=== PATIENT | female | born 1985 | race Caucasian/White ===

== ENCOUNTER 2019-01-15 14:09 | Inpatient (IN) | payer MEDICAID ==
[2019-01-15] MEDS ORDERED: Sodium Chloride 0.9% 1,000 ML IV ONE (14:29)
--- NOTE | 2019-01-15 14:39 | ED Physician Chart ---
ED Chief Complaint/HPI - Patient Information Date Seen:: 01/15/19 Time Seen:: 14:15 Chief Complaint:: Abdominal Pain History of Present Illness:: onset x 3 days of intermittent, crampy, diffuse abd. pain, N/V/D; no report of trauma, H/As, neck pain, cough, C/P, SOB, A/C, fever, chills, or urinary s/s Allergies:: Allergies Allergy/AdvReac Type Severity Reaction Status Date / Time DAIRY PRODUCTS Allergy Uncoded 01/15/19 14:16 Vitals:: Vital Signs - 8 hr 01/15/19 14:16 Temp 99.0 F HR 120 RR 16 BP 146/73 O2 Sat % 100 Historian:: Patient, EMS Review:: Nurse's Note Reviewed, Old Chart Reviewed, EMS run form Reviewed <Pranay Hernandez - Last Filed: 01/15/19 18:26> - Patient Information Allergies:: Allergies Allergy/AdvReac Type Severity Reaction Status Date / Time DAIRY PRODUCTS Allergy Uncoded 01/15/19 14:16 Vitals:: Vital Signs - 8 hr 01/15/19 01/15/19 14:16 19:57 Temp 99.0 F 98.9 F HR 120 102 RR 16 15 BP 146/73 122/72 O2 Sat % 100 99 <Yana Cm - Last Filed: 01/15/19 20:56> ED Review of Systems - Review of Systems General/Constitutional: No fever, No chills, No weight loss, No weakness, No diaphoresis, No edema, No loss of appetite Skin: No skin lesions, No rash, No bruising Head: No headache, No light-headedness Eyes: No loss of vision, No pain, No diplopia ENT: No earache, No nasal drainage, No sore throat, No tinnitus Neck: No neck pain, No swelling, No thyromegaly, No stiffness, No mass noted Cardio Vascular: No chest pain, No palpitations, No PND, No orthopnea, No edema Pulmonary: No SOB, No cough, No sputum, No wheezing GI: Nausea, Vomiting, Diarrhea, Pain, No melena, No hematochezia, No constipation, No hematemesis G/U: No dysuria, No frequency, No hematuria, No nacturia [employer]: No vaginal discharge, No abnormal vaginal bleed, No contraction Musculoskeletal: No bone or joint pain, No back pain, No muscle pain Endocrine: No polyuria, No polydipsia Psychiatric: Prior psych history, No depression, Anxiety, No suicidal ideation, No homicidal ideation, No auditory hallucination, No visual hallucination Hematopoietic: No bruising, No lymphadenopathy Allergic/Immuno: No urticaria, No angioedema Neurological: No syncope, No focal symptoms, No weakness, No paresthesia, No headache, No seizure, No dizziness, No confusion, No vertigo <Pranay Hernandez - Last Filed: 01/15/19 18:26> ED Past Medical History - Past Medical History Obtainable: Yes Past Medical History: HTN, Dyslipidemia, Arthritis Family History: HTN Social History: Non Smoker, No Alcohol, No Drug Use, Single, Care Facility Surgical History: None Psychiatricy History: Dementia Medication: Reviewed <Pranay Hernandez - Last Filed: 01/15/19 18:26> Family Medical History - Family Member Mother History Unknown: Yes Ethnicity: Unknown Living Status: Still Living <Pranay Hernandez - Last Filed: 01/15/19 18:26> ED Physical Exam - Physical Examination General/Constitutional: Awake, Well-developed, well-nourished, Alert, No distress, GCS 15, Non-toxic appearing, Ambulatory Head: Atraumatic Eyes: Lids, conjuctiva normal, PERRL, EOMI Skin: Nl inspection, No rash, No skin lesions, No ecchymosis, Well hydrated, No lymphadenopathy ENMT: External ears, nose nl, TM canals nl, Nasal exam nl, Lips, teeth, gums nl , Oropharynx nl, Tonsils nl Neck: Nontender, Full ROM w/o pain, No JVD, No nuchal rigidity, No bruit, No mass, No stridor Respiratory: Nl effort/Exclusion, Clear to Auscultation, No Wheeze/Rhonchi/Rales Cardio Vascular: RRR, No murmur, gallop, rubs, NL S1 S2, Carotid/Femoral/Distal pulses equal bilaterally GI: No tenderness/rebounding/guarding, No organomegaly, No hernia, Normal BS's, Nondistended, No mass/bruits, No McBurney tenderness, Rectum exam nl : No CVA tenderness Extremities: No tenderness or effusion, Full ROM, normal strength in all extremities, No edema, Normal digits & nails Neuro/Psych: Alert/oriented, DTR's symmetric, Normal sensory exam, Normal motor strength, Judgement/insight normal, Mood normal, Normal gait, No focal deficits Misc: Normal back, No paraspinal tenderness <Pranay Hernandez - Last Filed: 01/15/19 18:26> ED Labs/Radiology/EKG Results - Lab Results Results: Laboratory Tests 01/15/19 01/15/19 01/15/19 14:30 14:30 14:30 WBC 13.1 H RBC 4.76 Hgb 14.9 Hct 43.5 MCV 91.5 MCH 31.3 H MCHC Differential 34.3 RDW 13.6 Plt Count 282 MPV 8.4 Neutrophils % 95.3 H Lymphocytes % 1.7 L Monocytes % 2.5 Eosinophils % 0.1 Basophils % 0.4 Sodium 132 L Potassium 3.4 L Chloride 100 Carbon Dioxide 23.2 Anion Gap 12.2 BUN 16 Creatinine 0.6 Est GFR ( Amer) > 60.0 Est GFR (Non-Af Amer) > 60.0 BUN/Creatinine Ratio 26.7 Glucose 114 H Calcium 9.1 Total Bilirubin 0.2 L AST 19 ALT 17 Alkaline Phosphatase 73 Troponin I < 0.01 L Total Protein 7.2 Albumin 4.4 Globulin 2.8 Albumin/Globulin Ratio 1.6 Amylase 50 Lipase 21 Serum , Qual 01/15/19 14:30 WBC RBC Hgb Hct MCV MCH MCHC Differential RDW Plt Count MPV Neutrophils % Lymphocytes % Monocytes % Eosinophils % Basophils % Sodium Potassium Chloride Carbon Dioxide Anion Gap BUN Creatinine Est GFR ( Amer) Est GFR (Non-Af Amer) BUN/Creatinine Ratio Glucose Calcium Total Bilirubin AST ALT Alkaline Phosphatase Troponin I Total Protein Albumin Globulin Albumin/Globulin Ratio Amylase Lipase Serum , Qual NEGATIVE <Yana Cm - Last Filed: 01/15/19 20:56> ED Septic Shock - . Is Septic Shock (SBP<90, OR Lactate>4 mmol\L) present?: No - <6hrs of presentation: Vital Signs: Vital Signs - 8 hr 01/15/19 14:16 Temp 99.0 F HR 120 RR 16 BP 146/73 O2 Sat % 100 <Pranay Hernandez - Last Filed: 01/15/19 18:26> - <6hrs of presentation: Vital Signs: Vital Signs - 8 hr 01/15/19 01/15/19 14:16 19:57 Temp 99.0 F 98.9 F HR 120 102 RR 16 15 BP 146/73 122/72 O2 Sat % 100 99 <Yana Cm - Last Filed: 01/15/19 20:56> ED Reassessment (Disposition) - Reassessment Reassessment Condition:: Improved - Diagnosis Diagnosis:: Abdominal Pain; N/V/D; AGE; Leukocytosis; Hypokalemia; Hyponatremia; Dehydration ; Fever; Tachycardia <Pranay Hernandez - Last Filed: 01/15/19 18:26> - Reassessment Reassessment:: CT abdomen/pelvis showed severely distended stomach and RLQ mild ileus. There was elevated WBC with left shift, empirical rocephin and flagyl were given. Pt will be admitted under Dr. Ling's service. - Patient Disposition Discharge/Transfer:: Acute Care w/in this hosp Admitting Medical Physician:: Feroz Ling <Yana Cm - Last Filed: 01/15/19 20:56>
[2019-01-15 14:48] LABS: BASOPHILE ABSOLUTE 0.1 Th/cumm (0-0.2); HEMATOCRIT 43.5 % (41.0-60); HEMOGLOBIN 14.9 gm/dL (12-16); LYMPHOCYTE ABSOLUTE 0.2 Th/cmm (1.5-3.0); MEAN CELL VOLUME 91.5 fl (81-100); MEAN CORPUSCULAR HEMOGLOBIN 31.3 pg (27.0-31.0); MEAN CORPUSCULAR HGB CONC 34.3 pg (28.0-36.0); MEAN PLATELET VOLUME 8.4 fl; MONOCYTE ABSOLUTE 0.3 Th/cmm (0.3-1.0); NEUTROPHILE ABSOLUTE 12.5 Th/cmm (1.8-8.0); PLATELET COUNT 282 Th/cmm (150-400); RED BLOOD COUNT 4.76 Mil/cmm (3.80-5.10); RED CELL DISTRIBUTION WIDTH 13.6 % (11.5-20.0); WHITE BLOOD COUNT 13.1 Th/cmm (4.8-10.8)
[2019-01-15 14:54] LABS: % EOSINOPHILS 0.1 % (0.0-5.0); % LYMPHOCYTES 1.7 % (20.0-50.0); % MONOCYTES 2.5 % (2.0-10.0); % NEUTROPHILS 95.3 % (40.0-80.0)
[2019-01-15 14:55] LABS: % BASOPHILS 0.4 % (0.0-2.0)
[2019-01-15 15:10] LABS: ALB/GLOB RATIO 1.6 (1.0-1.8); ALBUMIN 4.4 gm/dL (3.7-5.3); ALKALINE PHOSPHATASE 73 U/L (34-104); AMYLASE SERUM 50 U/L (29-103); ANION GAP 12.2 (7.0-16.0); BILIRUBIN,TOTAL 0.2 mg/dL (0.3-1.0); BUN - UREA NITROGEN 16 mg/dL (7-25); CALCIUM SERUM 9.1 mg/dL (8.6-10.3); CARBON DIOXIDE 23.2 mEq/L (21.0-31.0); CHLORIDE 100 mEq/L (98-107); CREATININE - SERUM 0.6 mg/dL (0.6-1.2); GFR AFRICAN-AMERICAN > 60.0 ml/min (>90); GFR NON AFRICAN-AMERICAN > 60.0 ml/min; GLUCOSE 114 mg/dL (70-105); LIPASE 21 U/L (11-82); POTASSIUM SERUM 3.4 mEq/L (3.5-5.1); SGOT 19 U/L (13-39); SGPT/ALT 17 U/L (7-52); SODIUM SERUM 132 mEq/L (136-145); TOTAL PROTEIN,SERUM 7.2 gm/dL (6.0-8.3)
[2019-01-15] MEDS ORDERED: Potassium Chloride 20 mEq ER Tab PO ONE ×2 (15:47→16:53)
[2019-01-15] MEDS ORDERED: Diatrizoate Meglumine/Diatri 30 mL Sol ONE (15:59)
[2019-01-15] MEDS ORDERED: cefTRIAXone 1 GM in Sodium Chloride 0.9% 50 ML IV ONE (20:38)
[2019-01-15] MEDS ORDERED: metroNIDAZOLE 500mg/NS 100mL 500 MG/100 ML BAG IV ONE ×2 (20:39→21:08)
[2019-01-15] MEDS ORDERED: Sodium Chloride 0.9% 500 ML IV ONE (20:42)
[2019-01-15] MEDS: Sodium Chloride 0.9% 1,000 ML IV SCH (22:45)
[2019-01-15] MEDS ORDERED: HYDROmorphone 1 mg/mL 1mL Syr IVP PRN (22:58)
[2019-01-15] MEDS ORDERED: Sodium Chloride 0.9% 1,000 ML IV SCH (22:58)
[2019-01-16 03:53] VITALS: BP 116/64
[2019-01-16] MEDS ORDERED: metroNIDAZOLE 500mg/NS 100mL 500 MG/100 ML BAG IV SCH (05:00)
[2019-01-16 05:32] LABS: HEMATOCRIT 42.1 % (41.0-60); MEAN CORPUSCULAR HEMOGLOBIN 30.7 pg (27.0-31.0); MEAN CORPUSCULAR HGB CONC 33.4 pg (28.0-36.0); MEAN PLATELET VOLUME 8.8 fl; PLATELET COUNT 276 Th/cmm (150-400); RED BLOOD COUNT 4.57 Mil/cmm (3.80-5.10); RED CELL DISTRIBUTION WIDTH 13.7 % (11.5-20.0); WHITE BLOOD COUNT 10.5 Th/cmm (4.8-10.8)
[2019-01-16 05:47] LABS: ALB/GLOB RATIO 1.5 (1.0-1.8); ALBUMIN 3.7 gm/dL (3.7-5.3); ALKALINE PHOSPHATASE 60 U/L (34-104); ANION GAP 13.2 (7.0-16.0); BILIRUBIN,TOTAL 0.2 mg/dL (0.3-1.0); BUN - UREA NITROGEN 15 mg/dL (7-25); CALCIUM SERUM 8.7 mg/dL (8.6-10.3); CARBON DIOXIDE 16.8 mEq/L (21.0-31.0); CHLORIDE 109 mEq/L (98-107); CREATININE - SERUM 0.6 mg/dL (0.6-1.2); GFR AFRICAN-AMERICAN > 60.0 ml/min (>90); GFR NON AFRICAN-AMERICAN > 60.0 ml/min; GLUCOSE 110 mg/dL (70-105); SGOT 20 U/L (13-39); SGPT/ALT 18 U/L (7-52); SODIUM SERUM 136 mEq/L (136-145); TOTAL PROTEIN,SERUM 6.2 gm/dL (6.0-8.3)
[2019-01-16] MEDS: metroNIDAZOLE 500mg/NS 100mL 500 MG/100 ML BAG IV SCH ×3 (05:57→21:30)
[2019-01-16 06:55] LABS: BAND NEUTROPHILE 5 % (0-10); BASOPHIL 0 % (0-3); EOSINOPHIL 0 % (0-5); LYMPHOCYTE 3 % (20-50); MONOCYTE 6 % (2-10); NEUTROPHILS 86 % (40-80)
[2019-01-16] MEDS ORDERED: KCL 20mEq/100mL Premix 20 MEQ/100 ML PIGGYBACK IV ONE (07:30)
[2019-01-16] MEDS: cefTRIAXone 1 GM in Sodium Chloride 0.9% 50 ML IV SCH (08:20)
--- NOTE | 2019-01-16 09:44 | Diagnostic Imaging Report ---
Exam: CT examination abdomen pelvis HISTORY: Vomiting pain Rule out appendicitis. Total DLP equals 538 CTDI equals 10.9 Findings: Multiple contiguous thin section of the abdomen pelvis obtained from lower thorax to the pubic symphysis without the administration of oral or intravenous contrast material, no prior studies available comparison. The study demonstrates normal aeration of lung parenchyma the bases. The liver parenchyma is intact the spleen is normal. The stomach is seen medially distended. Content and air fluid level. The visualized pancreas is intact. The adrenal glands are normal. The kidneys demonstrate no evidence of obstructive uropathy or nephrolithiasis. There is evidence for mild distention of the lower small bowel loops suggestive of mild ileus. The visualized appendix is intact. There is no evidence of diverticular disease of diverticulitis. Bony structures demonstrate no evidence for lytic or blastic lesions. IMPRESSION: Severely distended stomach Mild ileus lower abdomen and pelvis distention small bowel loops with air-fluid levels Visualized appendix is intact.
--- NOTE | 2019-01-16 09:59 | History and Physical ---
History of Present Illness - HPI Chief Complaint: Nausea, vomit and diarrhea HPI: Patient was send from SNF for evaluation due to Nausea, vomit and diarrhea. During ER evaluation was foung Leukocytosis and dehydration, and abdominal CT showed possible ileus. Vital Signs: Last Vital Signs Temp 98.2 F 01/16/19 08:00 Pulse 107 01/16/19 08:00 Resp 18 01/16/19 08:00 BP 111/60 01/16/19 08:00 Pulse Ox 97 01/16/19 08:00 Past Medical History Cardiovascular: Report: No Pertinent Hx Pulmonary: Report: No Pertinent Hx [employer] APPRENTICE: Report: Dementia, Other (MR, Cerebral palsy.) GI: Report: No Pertinent Hx Psych: Report: Other (MR) Musculoskeletal: Report: Stiffness, Other (Non ambulatory) Rheumatologic: Report: No pertinent Hx Infectious Disease: Report: No Pertinent Hx Renal/: Report: No Pertinent Hx Endocrine: Report: No Pertinent Hx Dermatology: Report: No Pertinent Hx Family Medical History - Family Member Mother History Unknown: Yes Ethnicity: Unknown Living Status: Still Living Social History Smoke: No Alcohol: None Drugs: None Lives: Care Home Domestic Violence: Negative - Medications Home Medications: Home Medication Medication Instructions Recorded Type Bisacodyl [Dulcolax 10 Mg Supp] 10 mg RC Q96HR PRN 10/09/14 History Calcium Citrate/Vitamin D3 1 tab PO BID 10/09/14 History [Calcium Citrate with Vitamin D 315 mg-200 Iu] Loratadine 10 mg PO QAM 10/09/14 History Magnesium Hydroxide [Mom] 30 ml PO Q72HR PRN 10/09/14 History Multimineral/Multivitamin 1 tab PO DAILY 10/09/14 History [Multivitamin & Multimineral] Na Phos, Dibasic/Na Phos, Mo 0 ml RC Q96H PRN 10/09/14 History [Fleet Enema] Vits A & D/White Pet/Lanolin [A & 1 oin TP BID 10/09/14 History D Ointment] Acetaminophen [Tylenol] 650 mg PO Q4HR PRN 10/05/15 History Oxcarbazepine [Trileptal*] 600 mg PO BID 10/05/15 History Dermasmooth Oil 1 appl TP HS 01/15/19 History Hydrocortisone/Oatmeal/Aloe/E 28 gm TP DAILY 01/15/19 History [Aveeno 1% Cream] Petrolatum,White [Aquaphor Baby 1 appl TP DAILY 01/15/19 History Healing Ointment] Sunscreen Factor 30 1 appl TP PRN PRN 01/15/19 History - Allergies Allergies/Adverse Reactions: Allergies Allergy/AdvReac Type Severity Reaction Status Date / Time DAIRY PRODUCTS Allergy Uncoded 01/15/19 14:16 Review of Systems - Review of Systems Constitutional: Report: Weakness Eyes: Report: No Significant ENT: Report: No Significant Respiratory: Report: No Significant Cardiovascular: Report: No Significant Gastrointestinal: Report: Nausea, Vomiting Musculoskeletal: Report: No Significant Skin: Report: No Significant Neurological: Report: Weakness, Other (Non ambulatory) Physical Exam - Physical Exam HEENT: Report: Ears Nose Throat within normal limits Neck: Report: Within normal limits Cardiovascular Systems: Report: Regular, Rate and Rhythm Respiratory: Report: Breath Sounds are within normal limits Abdomen: Report: Non-tender to palpation, Other (BS present) Back: Report: Inspection of back is within normal limits. Extremities: Report: No pedal edema was noted on inspection Skin: Report: Color of skin is within normal limits Neuro/Psych: Report: Other (Non verbal) - Lab Results All Lab Results last 24 hours: Laboratory Results - last 24 hr 01/15/19 01/15/19 01/15/19 14:30 14:30 14:30 WBC 13.1 H RBC 4.76 Hgb 14.9 Hct 43.5 MCV 91.5 MCH 31.3 H MCHC Differential 34.3 RDW 13.6 Plt Count 282 MPV 8.4 Add Manual Diff Neutrophils % 95.3 H Band Neutrophils % Lymphocytes % 1.7 L Monocytes % 2.5 Eosinophils % 0.1 Basophils % 0.4 Neutrophils (Manual) Lymphocytes Monocytes Eosinophils Basophils Sodium 132 L Potassium 3.4 L Chloride 100 Carbon Dioxide 23.2 Anion Gap 12.2 BUN 16 Creatinine 0.6 Est GFR ( Amer) > 60.0 Est GFR (Non-Af Amer) > 60.0 BUN/Creatinine Ratio 26.7 Glucose 114 H Calcium 9.1 Total Bilirubin 0.2 L AST 19 ALT 17 Alkaline Phosphatase 73 Troponin I < 0.01 L Total Protein 7.2 Albumin 4.4 Globulin 2.8 Albumin/Globulin Ratio 1.6 Amylase 50 Lipase 21 Serum , Qual 01/15/19 01/16/19 01/16/19 14:30 04:50 04:50 WBC 10.5 RBC 4.57 Hgb 14.0 Hct 42.1 MCV 92.0 MCH 30.7 MCHC Differential 33.4 RDW 13.7 Plt Count 276 MPV 8.8 Add Manual Diff YES Neutrophils % Band Neutrophils % 5 Lymphocytes % Monocytes % Eosinophils % Basophils % Neutrophils (Manual) 86 H Lymphocytes 3 L Monocytes 6 Eosinophils 0 Basophils 0 Sodium 136 Potassium 3.0 L Chloride 109 H Carbon Dioxide 16.8 L Anion Gap 13.2 BUN 15 Creatinine 0.6 Est GFR ( Amer) > 60.0 Est GFR (Non-Af Amer) > 60.0 BUN/Creatinine Ratio 25.0 Glucose 110 H Calcium 8.7 Total Bilirubin 0.2 L AST 20 ALT 18 Alkaline Phosphatase 60 Troponin I Total Protein 6.2 Albumin 3.7 Globulin 2.5 Albumin/Globulin Ratio 1.5 Amylase Lipase Serum , Qual NEGATIVE - Assessment Assessment: Current Active Problems Problem Status Onset N/V WITH LOOSE STOOLS Acute Patient is awake, alert, agitated at moments. In no acute distress. Dx: diarrhea and vomit, possible ileus, Leukocytosis, Dehydrated, Hyponatremia, MR, CP. - Plan Plan: Patient is in IV NS, IV AB, NPO, continue with SNF meds. Consult with surgery requested.
[2019-01-16] MEDS: Sodium Chloride 0.9% 1,000 ML IV SCH (14:28)
[2019-01-16] MEDS: Calcium Carb/Vit D 500 mg/200 U Tab PO SCH (16:23)
--- NOTE | 2019-01-17 05:49 | Consultation ---
DATE OF CONSULTATION: 01/16/2019 SURGICAL CONSULTATION TIME: 08:42 p.m. HISTORY OF PRESENT ILLNESS: The patient is a 33-year-old mentally retarded female, who resides at a residential facility, limited history, poor historian. Three days of reported intermittent, crampy, diffuse abdominal pain with some nausea, vomiting and some diarrhea. No report of trauma. The patient was noted with a mild leukocytosis and CT scan showed a severely distended stomach and mild ileus and the patient was subsequently admitted to the hospital. Surgical consultation was requested. Admitted by Dr. Feroz Ling. The patient denies any significant abdominal pain, although she is not very interactive. The rest of her history is not obtainable. She has mental retardation and cerebral palsy. HOME MEDICATIONS: Includes Dulcolax suppository, calcium citrate, loratadine, magnesium hydroxide, multivitamins, Fleet's enema, hydrocortisone, petroleum white, Aquaphor baby healing ointment. ALLERGIES: THE PATIENT HAS DAIRY PRODUCTS ALLERGY. PHYSICAL EXAMINATION: VITAL SIGNS: She is 51 kilograms. BMI of 25.6. She is afebrile, T-max of 99.6, some tachycardia 110-114, blood pressure otherwise stable. GENERAL: She is mentally retarded. She is in restraints, but very uncooperative. HEENT AND NECK: Otherwise within normal limits. CHEST: Clear to auscultation bilaterally. CARDIAC: Regular rhythm and rate. ABDOMEN: Soft, no obvious tenderness. There is no obvious guarding, rebound, or generalized peritoneal signs. Nondistended. NEUROVASCULAR AND EXTREMITIES: Otherwise normal. RECTAL: Revealed no gross blood and no obvious constipation or hemorrhoids. LABORATORY DATA: White blood cell count 13.1 on admission, down to 10.5 today; H and H is 14 and 42, platelet count 276, and 86 neutrophils. Potassium 3.0, chloride 109, bicarbonate 16.8, glucose 110. LFTs are otherwise unremarkable. The CT abdomen and pelvis performed yesterday reveals severely distended stomach, mild ileus in lower abdomen and pelvis, distention of small bowel loops with air fluid levels, visualized appendix is intact with no obvious right lower quadrant inflammatory changes or acute appendicitis. MEDICATIONS: The patient is on ceftriaxone and Flagyl. IMPRESSION/PLAN: A 33-year-old female, mentally retarded, cerebral palsy, resides in a residential facility, reportedly developed nausea and vomiting, and presented to the ER with a mild leukocytosis, low grade fever. CT abdomen and pelvis showed a severely distended stomach and some mild ileus, cannot rule out small-bowel obstruction or partial small-bowel obstruction. The patient had 5 bowel movements today, soft liquidy. I would repeat the KUB tomorrow if there is any concern for obstructive process. Would place an NG tube and obtain a small bowel series. She may not cooperate with this study well. She has a fairly benign abdominal examination and does not appear in distress at this time. [facility]# [id number]
[2019-01-17] MEDS: metroNIDAZOLE 500mg/NS 100mL 500 MG/100 ML BAG IV SCH ×3 (07:04→22:41)
[2019-01-17 07:32] LABS: ALB/GLOB RATIO 1.4 (1.0-1.8); ALBUMIN 3.1 gm/dL (3.7-5.3); ALKALINE PHOSPHATASE 48 U/L (34-104); ANION GAP 12.2 (7.0-16.0); BILIRUBIN,TOTAL 0.2 mg/dL (0.3-1.0); BUN - UREA NITROGEN 9 mg/dL (7-25); CALCIUM SERUM 8.2 mg/dL (8.6-10.3); CARBON DIOXIDE 13.8 mEq/L (21.0-31.0); CHLORIDE 111 mEq/L (98-107); CREATININE - SERUM 0.6 mg/dL (0.6-1.2); GFR AFRICAN-AMERICAN > 60.0 ml/min (>90); GFR NON AFRICAN-AMERICAN > 60.0 ml/min; GLUCOSE 79 mg/dL (70-105); SGOT 31 U/L (13-39); SGPT/ALT 16 U/L (7-52); SODIUM SERUM 133 mEq/L (136-145); TOTAL PROTEIN,SERUM 5.4 gm/dL (6.0-8.3)
[2019-01-17 07:42] LABS: BASOPHILE ABSOLUTE 0.1 Th/cumm (0-0.2); EOSINOPHILE ABSOLUTE 0.1 Th/cmm (0.1-0.4); HEMATOCRIT 37.5 % (41.0-60); HEMOGLOBIN 12.5 gm/dL (12-16); LYMPHOCYTE ABSOLUTE 0.9 Th/cmm (1.5-3.0); MEAN CELL VOLUME 93.2 fl (81-100); MEAN CORPUSCULAR HEMOGLOBIN 30.9 pg (27.0-31.0); MEAN CORPUSCULAR HGB CONC 33.2 pg (28.0-36.0); MEAN PLATELET VOLUME 8.8 fl; NEUTROPHILE ABSOLUTE 4.1 Th/cmm (1.8-8.0); PLATELET COUNT 204 Th/cmm (150-400); RED BLOOD COUNT 4.03 Mil/cmm (3.80-5.10); RED CELL DISTRIBUTION WIDTH 13.8 % (11.5-20.0); WHITE BLOOD COUNT 6.2 Th/cmm (4.8-10.8)
--- NOTE | 2019-01-17 08:42 | Diagnostic Imaging Report ---
Exam: KUB of the abdomen. HISTORY: Ileus. Findings: Multiple views of the abdomen reviewed the study demonstrates a distention of small bowel large bowel loops suggestive of mild ileus. Bony structures intact no abnormal masses calcifications noted. IMPRESSION: Mild ileus.
--- NOTE | 2019-01-17 08:48 | General Progress Note ---
Subjective - Review of Systems Service Date: 01/17/19 Subjective: Non Verbal Objective - Results Result Diagrams: 01/17/19 06:45 01/17/19 06:45 Recent Labs: Laboratory Last Values WBC 6.2 Th/cmm (4.8-10.8) 01/17/19 06:45 RBC 4.03 Mil/cmm (3.80-5.10) 01/17/19 06:45 Hgb 12.5 gm/dL (12-16) 01/17/19 06:45 Hct 37.5 % (41.0-60) L 01/17/19 06:45 MCV 93.2 fl (81-100) 01/17/19 06:45 MCH 30.9 pg (27.0-31.0) 01/17/19 06:45 MCHC Differential 33.2 pg (28.0-36.0) 01/17/19 06:45 RDW 13.8 % (11.5-20.0) 01/17/19 06:45 Plt Count 204 Th/cmm (150-400) 01/17/19 06:45 MPV 8.8 fl 01/17/19 06:45 Add Manual Diff YES 01/17/19 06:45 Neutrophils % 95.3 % (40.0-80.0) H 01/15/19 14:30 Band Neutrophils % 5 % (0-10) 01/16/19 04:50 Lymphocytes % 1.7 % (20.0-50.0) L 01/15/19 14:30 Monocytes % 2.5 % (2.0-10.0) 01/15/19 14:30 Eosinophils % 0.1 % (0.0-5.0) 01/15/19 14:30 Basophils % 0.4 % (0.0-2.0) 01/15/19 14:30 Neutrophils (Manual) 86 % (40-80) H 01/16/19 04:50 Lymphocytes 3 % (20-50) L 01/16/19 04:50 Monocytes 6 % (2-10) 01/16/19 04:50 Eosinophils 0 % (0-5) 01/16/19 04:50 Basophils 0 % (0-3) 01/16/19 04:50 Sodium 133 mEq/L (136-145) L 01/17/19 06:45 Potassium 4.0 mEq/L (3.5-5.1) 01/17/19 06:45 Chloride 111 mEq/L (98-107) H 01/17/19 06:45 Carbon Dioxide 13.8 mEq/L (21.0-31.0) L 01/17/19 06:45 Anion Gap 12.2 (7.0-16.0) 01/17/19 06:45 BUN 9 mg/dL (7-25) 01/17/19 06:45 Creatinine 0.6 mg/dL (0.6-1.2) 01/17/19 06:45 Est GFR ( Amer) > 60.0 ml/min (>90) 01/17/19 06:45 Est GFR (Non-Af Amer) > 60.0 ml/min 01/17/19 06:45 BUN/Creatinine Ratio 15.0 01/17/19 06:45 Glucose 79 mg/dL (70-105) 01/17/19 06:45 Calcium 8.2 mg/dL (8.6-10.3) L 01/17/19 06:45 Total Bilirubin 0.2 mg/dL (0.3-1.0) L 01/17/19 06:45 AST 31 U/L (13-39) 01/17/19 06:45 ALT 16 U/L (7-52) 01/17/19 06:45 Alkaline Phosphatase 48 U/L (34-104) 01/17/19 06:45 Troponin I < 0.01 ng/mL (0.01-0.05) L 01/15/19 14:30 Total Protein 5.4 gm/dL (6.0-8.3) L 01/17/19 06:45 Albumin 3.1 gm/dL (3.7-5.3) L 01/17/19 06:45 Globulin 2.3 gm/dL 01/17/19 06:45 Albumin/Globulin Ratio 1.4 (1.0-1.8) 01/17/19 06:45 Amylase 50 U/L (29-103) 01/15/19 14:30 Lipase 21 U/L (11-82) 01/15/19 14:30 Serum , Qual NEGATIVE (NEGATIVE) 01/15/19 14:30 - Physical Exam Vitals and I&O: Vital Signs Temp 97.6 F 01/17/19 06:44 Pulse 93 01/17/19 06:44 Resp 20 01/17/19 06:44 BP 116/69 01/17/19 06:44 Pulse Ox 93 01/17/19 06:44 Intake & Output 01/16/19 01/17/19 01/17/19 18:59 06:59 18:59 Intake Total 2049 140 Output Total 3 Balance 2046 140 Weight (lbs) 51.71 kg 51.71 kg Intake: Intake, IV Amount 1150 100 Sodium Chloride 0.9% 1, 1000 000 ml @ 100 mls/hr IV . Q10H [facility] Rx#:[id number] cefTRIAXone 1 gm In 50 Sodium Chloride 0.9% 50 ml @ 100 mls/hr IV Q24HR [facility] Rx#:[id number] metroNIDAZOLE 500mg/NS 100 100 100mL 500 mg In 100 ml @ 100 mls/hr IV Q8HR [facility] Rx #:[id number] Oral 900 40 Output: Urine 3 Other: # Voids 5 # Bowel Movements 5 2 Weight Source Bedscale Bedscale Active Medications: Current Medications Acetaminophen (Tylenol) 650 mg PO Q4HR PRN PRN Reason: PAIN OR FEVER >100 Stop: 03/17/19 09:50 Calcium/Vitamin D (Oscal W/Vitamin D) 1 tab PO BID [facility] Stop: 03/17/19 16:59 Last Admin: 01/16/19 16:23 Dose: 1 tab Hydromorphone HCl (Dilaudid) 0.5 mg IVP Q6HR PRN PRN Reason: mod to severe pain Stop: 03/16/19 22:57 Sodium Chloride (Nacl 0.9%) 1,000 mls @ 100 mls/hr IV .Q10H [facility] Stop: 03/16/19 21:59 Last Admin: 01/16/19 14:28 Dose: 100 mls/hr Ceftriaxone Sodium 1 gm/ (Sodium Chloride) 50 mls @ 100 mls/hr IV Q24HR [facility] Stop: 03/17/19 08:59 Last Infusion: 01/16/19 08:50 Dose: Infused Metronidazole (Flagyl) 500 mg in 100 mls @ 100 mls/hr IV Q8HR [facility] Stop: 03/17/19 04:59 Last Admin: 01/17/19 07:04 Dose: 100 mls/hr Lorazepam (Ativan) 1 mg IVP Q8HR PRN; Protocol PRN Reason: Agitation Stop: 03/17/19 00:56 Last Admin: 01/17/19 08:07 Dose: 1 mg Multivitamins/Vitamin C (Theragran) 1 tab PO DAILY [facility] Stop: 03/18/19 08:59 Ondansetron HCl (Zofran) 4 mg IV Q8H PRN PRN Reason: Nausea / Vomiting Stop: 03/16/19 22:07 Oxcarbazepine (Trileptal) 600 mg PO BID [facility] Stop: 03/17/19 16:59 Last Admin: 01/16/19 16:23 Dose: 600 mg General: Alert, Other (Confused, non verbal) HEENT: Atraumatic Neck: Supple Cardiovascular: Regular rate Lungs: Clear to auscultation Abdomen: Bowel sounds, Soft, Other (Non tender) Extremities: Other (No edema) Neurological: Other (Non ambulatory) Skin: Other (Warm and dry) Psych/Mental Status: Other (Confused, not oriented, non verbal) Assessment/Plan - Problem List Patient Problems: All Active Problems N/V WITH LOOSE STOOLS (Acute) - Assessment Assessment: Current Active Problems Problem Status Onset N/V WITH LOOSE STOOLS Acute Patient is awake, alert, agitated at moments. In no acute distress. WBC normal, yesterday she evacuate 5 times soft. Dx: diarrhea and vomit, possible ileus, Leukocytosis, Dehydrated, Hyponatremia, MR, CP. - Plan Plan: Patient is in IV NS, IV AB, NPO, continue with SNF meds. Already seen by surgery. Will continue to monitor. Nutritional Asmnt/Malnutr-PDOC - Dietary Evaluation Malnutrition Findings (Please click <Entered> for more info): Nutritional Asmnt/Malnutrition Start: 01/16/19 16: 31 Text: Status: Complete Freq: Protocol: Document 01/16/19 16:31 [facility] (Rec: 01/16/19 16:38 [facility] [id number]) Nutritional Asmnt/Malnutrition Patient General Information Nutritional Screening High Risk Consult Diagnosis possible ileus Pertinent Medical Hx/Surgical Hx HTN, dyslipidemia, arthritis, dementia Subjective Information Consult received for judith 11 . Pt admitted for N/V/D, abd pain. Pt seen lying in bed, confused, not participated in communication, has 1:1 sitter. pt was on NPO. Clear liquid starts from dinner today. Current Diet Order/ Nutrition Support clear liquid Pertinent Medications oscal w/vit D, theragran, nacl 0.9% Pertinent Labs 01/16 K 3.0, Cl 109, Glucose 110 01/15 Na 132, K 3.4, Glucose 114 Nutritional Hx/Data Height 1.42 m Height (Calculated Centimeters) 142.2 Current Weight (lbs) 51.71 kg Weight (Calculated Kilograms) 51.7 Weight (Calculated Grams) 11718.5 [place] Body Weight 92 Body Mass Index (BMI) 25.5 Recent Weight Change Yes Weight Status Overweight GI Symptoms GI Symptoms None Last BM not indciated Difficult in: None Skin Integrity/Comment: intact. judith Maciel Estimated Nutritional Goals BEE in Kcals: Using Current wt Calories/Kcals/Kg 23-27 Kcals Calculated 0848-0708 Protein: Using Current wt Protein g/k.8 Protein Calculated 41 Fluid: ml 1196-1404ml (1ml/kcal) Nutritional Problem 1. Problem Problem inadequate food intake Etiology GI dysfunction Signs/Symptoms: pt on clear liquid diet Malnutrition Alert Is there a minimum of two criteria No selected? Query Text:Check all the applicable criteria. A minimum of two criteria are recommended for diagnosis of either severe or non-severe malnutrition. Malnutrition Related to Morbid Obesity Malnutrition related to morbid obesity No Intervention/Recommendation Comments 1. Continue with clear liquid diet as ordered. Add ENsure Clear TId with meals for extra kcal and protein per hospital protocol. 2. Monitor PO intake and tolerance, GI symptoms, wt, labs and skin integrity 3. F/U as high risk in 2-3 days Expected Outcomes/Goals Expected Outcomes/Goals 1. PO intake to meet at least 75% of nutritional needs. 2. Wt stability, skin to remain intact, labs to approach WNL.
[2019-01-17 08:51] LABS: LYMPHOCYTE 12 % (20-50); NEUTROPHILS 69 % (40-80)
[2019-01-17 08:52] LABS: MONOCYTE 19 % (2-10)
[2019-01-17] MEDS: Calcium Carb/Vit D 500 mg/200 U Tab PO SCH ×2 (09:20→16:59)
[2019-01-17] MEDS: Multivitamin Tab PO SCH (09:20)
[2019-01-17] MEDS: cefTRIAXone 1 GM in Sodium Chloride 0.9% 50 ML IV SCH (09:20)
[2019-01-18] MEDS: metroNIDAZOLE 500mg/NS 100mL 500 MG/100 ML BAG IV SCH ×3 (04:46→22:11)
[2019-01-18 06:13] LABS: EOSINOPHILE ABSOLUTE 0.1 Th/cmm (0.1-0.4); HEMATOCRIT 36.8 % (41.0-60); LYMPHOCYTE ABSOLUTE 1.2 Th/cmm (1.5-3.0); MEAN CELL VOLUME 93.1 fl (81-100); MEAN CORPUSCULAR HEMOGLOBIN 30.5 pg (27.0-31.0); MEAN CORPUSCULAR HGB CONC 32.7 pg (28.0-36.0); MEAN PLATELET VOLUME 8.8 fl; MONOCYTE ABSOLUTE 1.4 Th/cmm (0.3-1.0); NEUTROPHILE ABSOLUTE 2.5 Th/cmm (1.8-8.0); PLATELET COUNT 215 Th/cmm (150-400); RED BLOOD COUNT 3.95 Mil/cmm (3.80-5.10); RED CELL DISTRIBUTION WIDTH 13.6 % (11.5-20.0); WHITE BLOOD COUNT 5.2 Th/cmm (4.8-10.8)
[2019-01-18 06:39] LABS: ANION GAP 11.4 (7.0-16.0); BUN - UREA NITROGEN 6 mg/dL (7-25); CARBON DIOXIDE 17.9 mEq/L (21.0-31.0); CHLORIDE 110 mEq/L (98-107); CREATININE - SERUM 0.6 mg/dL (0.6-1.2); GLUCOSE 89 mg/dL (70-105); POTASSIUM SERUM 3.3 mEq/L (3.5-5.1); SODIUM SERUM 136 mEq/L (136-145)
[2019-01-18 06:40] LABS: ALB/GLOB RATIO 1.3 (1.0-1.8); ALBUMIN 3.1 gm/dL (3.7-5.3); ALKALINE PHOSPHATASE 46 U/L (34-104); BILIRUBIN,TOTAL 0.2 mg/dL (0.3-1.0); CALCIUM SERUM 8.1 mg/dL (8.6-10.3); GFR AFRICAN-AMERICAN > 60.0 ml/min (>90); GFR NON AFRICAN-AMERICAN > 60.0 ml/min; SGOT 28 U/L (13-39); SGPT/ALT 18 U/L (7-52); TOTAL PROTEIN,SERUM 5.5 gm/dL (6.0-8.3)
--- NOTE | 2019-01-18 08:47 | General Progress Note ---
Subjective - Review of Systems Service Date: 01/18/19 Subjective: Patient Non Verbal Objective - Results Result Diagrams: 01/18/19 05:30 01/18/19 05:30 Recent Labs: Laboratory Last Values WBC 5.2 Th/cmm (4.8-10.8) 01/18/19 05:30 RBC 3.95 Mil/cmm (3.80-5.10) 01/18/19 05:30 Hgb 12.0 gm/dL (12-16) 01/18/19 05:30 Hct 36.8 % (41.0-60) L 01/18/19 05:30 MCV 93.1 fl (81-100) 01/18/19 05:30 MCH 30.5 pg (27.0-31.0) 01/18/19 05:30 MCHC Differential 32.7 pg (28.0-36.0) 01/18/19 05:30 RDW 13.6 % (11.5-20.0) 01/18/19 05:30 Plt Count 215 Th/cmm (150-400) 01/18/19 05:30 MPV 8.8 fl 01/18/19 05:30 Add Manual Diff YES 01/18/19 05:30 Neutrophils % 95.3 % (40.0-80.0) H 01/15/19 14:30 Band Neutrophils % 5 % (0-10) 01/16/19 04:50 Lymphocytes % 1.7 % (20.0-50.0) L 01/15/19 14:30 Monocytes % 2.5 % (2.0-10.0) 01/15/19 14:30 Eosinophils % 0.1 % (0.0-5.0) 01/15/19 14:30 Basophils % 0.4 % (0.0-2.0) 01/15/19 14:30 Neutrophils (Manual) 69 % (40-80) 01/17/19 06:45 Lymphocytes 12 % (20-50) L 01/17/19 06:45 Monocytes 19 % (2-10) H 01/17/19 06:45 Eosinophils 0 % (0-5) 01/16/19 04:50 Basophils 0 % (0-3) 01/16/19 04:50 Sodium 136 mEq/L (136-145) 01/18/19 05:30 Potassium 3.3 mEq/L (3.5-5.1) L 01/18/19 05:30 Chloride 110 mEq/L (98-107) H 01/18/19 05:30 Carbon Dioxide 17.9 mEq/L (21.0-31.0) L 01/18/19 05:30 Anion Gap 11.4 (7.0-16.0) 01/18/19 05:30 BUN 6 mg/dL (7-25) L 01/18/19 05:30 Creatinine 0.6 mg/dL (0.6-1.2) 01/18/19 05:30 Est GFR ( Amer) > 60.0 ml/min (>90) 01/18/19 05:30 Est GFR (Non-Af Amer) > 60.0 ml/min 01/18/19 05:30 BUN/Creatinine Ratio 10.0 01/18/19 05:30 Glucose 89 mg/dL (70-105) 01/18/19 05:30 Calcium 8.1 mg/dL (8.6-10.3) L 01/18/19 05:30 Total Bilirubin 0.2 mg/dL (0.3-1.0) L 01/18/19 05:30 AST 28 U/L (13-39) 01/18/19 05:30 ALT 18 U/L (7-52) 01/18/19 05:30 Alkaline Phosphatase 46 U/L (34-104) 01/18/19 05:30 Troponin I < 0.01 ng/mL (0.01-0.05) L 01/15/19 14:30 Total Protein 5.5 gm/dL (6.0-8.3) L 01/18/19 05:30 Albumin 3.1 gm/dL (3.7-5.3) L 01/18/19 05:30 Globulin 2.4 gm/dL 01/18/19 05:30 Albumin/Globulin Ratio 1.3 (1.0-1.8) 01/18/19 05:30 Amylase 50 U/L (29-103) 01/15/19 14:30 Lipase 21 U/L (11-82) 01/15/19 14:30 Serum , Qual NEGATIVE (NEGATIVE) 01/15/19 14:30 - Physical Exam Vitals and I&O: Vital Signs Temp 97.6 F 01/18/19 04:00 Pulse 70 01/18/19 04:00 Resp 18 01/18/19 04:00 BP 120/70 01/18/19 04:00 Pulse Ox 96 01/18/19 04:00 Intake & Output 01/17/19 01/18/19 01/18/19 18:59 06:59 18:59 Intake Total 450 100 Balance 450 100 Weight (lbs) 51.71 kg 51.71 kg Intake: Intake, IV Amount 250 100 cefTRIAXone 1 gm In 50 Sodium Chloride 0.9% 50 ml @ 100 mls/hr IV Q24HR [facility] Rx#:[id number] metroNIDAZOLE 500mg/NS 200 100 100mL 500 mg In 100 ml @ 100 mls/hr IV Q8HR [facility] Rx #:[id number] Oral 200 Other: # Voids 3 # Bowel Movements 1 Weight Source Bedscale Bedscale Active Medications: Current Medications Acetaminophen (Tylenol) 650 mg PO Q4HR PRN PRN Reason: PAIN OR FEVER >100 Stop: 03/17/19 09:50 Calcium/Vitamin D (Oscal W/Vitamin D) 1 tab PO BID [facility] Stop: 03/17/19 16:59 Last Admin: 01/17/19 16:59 Dose: 1 tab Hydromorphone HCl (Dilaudid) 0.5 mg IVP Q6HR PRN PRN Reason: mod to severe pain Stop: 03/16/19 22:57 Sodium Chloride (Nacl 0.9%) 1,000 mls @ 100 mls/hr IV .Q10H [facility] Stop: 03/16/19 21:59 Last Admin: 01/16/19 14:28 Dose: 100 mls/hr Ceftriaxone Sodium 1 gm/ (Sodium Chloride) 50 mls @ 100 mls/hr IV Q24HR [facility] Stop: 03/17/19 08:59 Last Infusion: 01/17/19 10:00 Dose: Infused Metronidazole (Flagyl) 500 mg in 100 mls @ 100 mls/hr IV Q8HR [facility] Stop: 03/17/19 04:59 Last Admin: 01/18/19 04:46 Dose: 100 mls/hr Lorazepam (Ativan) 1 mg IVP Q8HR PRN; Protocol PRN Reason: Agitation Stop: 03/17/19 00:56 Last Admin: 01/17/19 08:07 Dose: 1 mg Multivitamins/Vitamin C (Theragran) 1 tab PO DAILY [facility] Stop: 03/18/19 08:59 Last Admin: 01/17/19 09:20 Dose: 1 tab Ondansetron HCl (Zofran) 4 mg IV Q8H PRN PRN Reason: Nausea / Vomiting Stop: 03/16/19 22:07 Oxcarbazepine (Trileptal) 600 mg PO BID [facility] Stop: 03/17/19 16:59 Last Admin: 01/17/19 16:59 Dose: 600 mg General: Alert, Other (Confused, non verbal) HEENT: Atraumatic Neck: Supple Cardiovascular: Regular rate Lungs: Clear to auscultation Abdomen: Bowel sounds, Soft, Other (Non tender) Extremities: Other (No edema) Neurological: Other (Non ambulatory) Skin: Other (Warm and dry) Psych/Mental Status: Other (Confused, not oriented, non verbal) Assessment/Plan - Problem List Patient Problems: All Active Problems N/V WITH LOOSE STOOLS (Acute) - Assessment Assessment: Current Active Problems Problem Status Onset N/V WITH LOOSE STOOLS Acute Patient is awake, alert, Calm, in no acute distress. Blood culture positive for Gram positive coccus in chain. Yesterday she evacuated 2 times. KUB showed mild ileus. Dx: diarrhea and vomit, possible ileus, Leukocytosis, Dehydrated, Hyponatremia, MR, CP. - Plan Plan: Patient is in IV NS, IV AB, NPO, continue with SNF meds. Will continue to monitor. Nutritional Asmnt/Malnutr-PDOC - Dietary Evaluation Malnutrition Findings (Please click <Entered> for more info): Nutritional Asmnt/Malnutrition Start: 01/16/19 16: 31 Text: Status: Complete Freq: Protocol: Document 01/16/19 16:31 LCHENG (Rec: 01/16/19 16:38 [email or web address]) Nutritional Asmnt/Malnutrition Patient General Information Nutritional Screening High Risk Consult Diagnosis possible ileus Pertinent Medical Hx/Surgical Hx HTN, dyslipidemia, arthritis, dementia Subjective Information Consult received for judith 11 . Pt admitted for N/V/D, abd pain. Pt seen lying in bed, confused, not participated in communication, has 1:1 sitter. pt was on NPO. Clear liquid starts from dinner today. Current Diet Order/ Nutrition Support clear liquid Pertinent Medications oscal w/vit D, theragran, nacl 0.9% Pertinent Labs 01/16 K 3.0, Cl 109, Glucose 110 01/15 Na 132, K 3.4, Glucose 114 Nutritional Hx/Data Height 1.42 m Height (Calculated Centimeters) 142.2 Current Weight (lbs) 51.71 kg Weight (Calculated Kilograms) 51.7 Weight (Calculated Grams) 22922.5 [place] Body Weight 92 Body Mass Index (BMI) 25.5 Recent Weight Change Yes Weight Status Overweight GI Symptoms GI Symptoms None Last BM not indciated Difficult in: None Skin Integrity/Comment: intact. judith 11 Estimated Nutritional Goals BEE in Kcals: Using Current wt Calories/Kcals/Kg 23-27 Kcals Calculated 5828-8679 Protein: Using Current wt Protein g/k.8 Protein Calculated 41 Fluid: ml 1196-1404ml (1ml/kcal) Nutritional Problem 1. Problem Problem inadequate food intake Etiology GI dysfunction Signs/Symptoms: pt on clear liquid diet Malnutrition Alert Is there a minimum of two criteria No selected? Query Text:Check all the applicable criteria. A minimum of two criteria are recommended for diagnosis of either severe or non-severe malnutrition. Malnutrition Related to Morbid Obesity Malnutrition related to morbid obesity No Intervention/Recommendation Comments 1. Continue with clear liquid diet as ordered. Add ENsure Clear TId with meals for extra kcal and protein per hospital protocol. 2. Monitor PO intake and tolerance, GI symptoms, wt, labs and skin integrity 3. F/U as high risk in 2-3 days Expected Outcomes/Goals Expected Outcomes/Goals 1. PO intake to meet at least 75% of nutritional needs. 2. Wt stability, skin to remain intact, labs to approach WNL.
[2019-01-18] MEDS: Multivitamin Tab PO SCH (09:26)
[2019-01-18] MEDS: Calcium Carb/Vit D 500 mg/200 U Tab PO SCH ×2 (09:26→17:33)
[2019-01-18] MEDS: cefTRIAXone 1 GM in Sodium Chloride 0.9% 50 ML IV SCH (09:27)
[2019-01-18 10:30] LABS: LYMPHOCYTE 19 % (20-50); MONOCYTE 19 % (2-10); NEUTROPHILS 61 % (40-80)
[2019-01-18 10:31] LABS: EOSINOPHIL 1 % (0-5); PLATELET ESTIMATE ADEQUATE (NORMAL)
--- NOTE | 2019-01-18 20:17 | Progress Notes ---
DATE: 01/17/2019 SURGICAL PROGRESS NOTE TIME: 10:05 p.m. SUBJECTIVE: GENERAL: The patient is resting in bed comfortably, in no acute distress. VITAL SIGNS: Afebrile, vital signs stable. CHEST: Clear to auscultation bilaterally. HEART: Regular rhythm and rate. ABDOMEN: Soft, nontender, nondistended. There is no guarding, rebound or generalized peritoneal signs. He has had 2 bowel movements yesterday and one bowel movement today. NEUROVASCULAR AND EXTREMITY: Otherwise normal. LABORATORY DATA: Her white blood cell count 6.2, H and H is 12.5 and 37.5, and platelet count 204. The sodium is 133, chloride 111, bicarbonate 13.8, total bilirubin 0.2, and albumin 3.1. The patient is on ceftriaxone, Flagyl, IV fluids. A KUB done today showed mild ileus. IMPRESSION AND PLAN: The patient with a mild ileus, clinically is tolerating a soft mechanical diet, has a benign abdominal examination with no distress or discomfort, benign abdominal examination soft and nontender, nondistended. He has been having regular bowel movements yesterday and today. The gastroparesis probably transient and may have been an episode of gastroenteritis, which has improved and advance diet as tolerates. We will follow, but doubt any surgical issues at this time. Discharge planning is probably reasonable. [facility]# [id number]
[2019-01-19] MEDS: metroNIDAZOLE 500mg/NS 100mL 500 MG/100 ML BAG IV SCH ×3 (04:47→20:06)
[2019-01-19] MEDS: cefTRIAXone 1 GM in Sodium Chloride 0.9% 50 ML IV SCH (09:35)
[2019-01-19] MEDS: Multivitamin Tab PO SCH (09:36)
[2019-01-19] MEDS: Calcium Carb/Vit D 500 mg/200 U Tab PO SCH ×2 (09:37→16:31)
--- NOTE | 2019-01-19 11:54 | Progress Notes ---
DATE: 01/18/2019 SURGICAL PROGRESS NOTE TIME: 9:01 p.m. OBJECTIVE: VITAL SIGNS: T-max of 99.4, afebrile. Vital signs otherwise stable. GENERAL: Resting in bed comfortably, in no acute distress. CHEST: Clear to auscultation bilaterally. CARDIAC: Regular rhythm and rate. ABDOMEN: Soft, nontender, nondistended. NEUROVASCULAR AND EXTREMITIES: Otherwise normal. She is tolerating p.o. diet well. Multiple bowel movements. Has benign abdominal examination. LABORATORY DATA: Her white blood cell count 5.2, H and H is 12 and 36, platelet count 215. IMPRESSION/PLAN: Overall stable, tolerating p.o. diet well. Multiple bowel movements, benign abdominal examination, soft, nontender, nondistended, stable for discharge, likely awaiting discharge planning. No active surgical issues at this time. Advance diet as tolerated. [facility]# [id number]
[2019-01-19 14:33] LABS: % BASOPHILS 0.3 % (0.0-2.0); % EOSINOPHILS 4.1 % (0.0-5.0); % LYMPHOCYTES 25.9 % (20.0-50.0); % NEUTROPHILS 55.7 % (40.0-80.0); EOSINOPHILE ABSOLUTE 0.2 Th/cmm (0.1-0.4); HEMOGLOBIN 11.6 gm/dL (12-16); LYMPHOCYTE ABSOLUTE 1.2 Th/cmm (1.5-3.0); MEAN CELL VOLUME 92.5 fl (81-100); MEAN CORPUSCULAR HEMOGLOBIN 29.8 pg (27.0-31.0); MEAN CORPUSCULAR HGB CONC 32.3 pg (28.0-36.0); MEAN PLATELET VOLUME 8.6 fl; MONOCYTE ABSOLUTE 0.6 Th/cmm (0.3-1.0); NEUTROPHILE ABSOLUTE 2.6 Th/cmm (1.8-8.0); PLATELET COUNT 251 Th/cmm (150-400); RED CELL DISTRIBUTION WIDTH 13.6 % (11.5-20.0); WHITE BLOOD COUNT 4.6 Th/cmm (4.8-10.8)
[2019-01-19 14:51] LABS: ALB/GLOB RATIO 1.3 (1.0-1.8); ALBUMIN 3.3 gm/dL (3.7-5.3); ALKALINE PHOSPHATASE 52 U/L (34-104); ANION GAP 12.3 (7.0-16.0); BILIRUBIN,TOTAL 0.2 mg/dL (0.3-1.0); BUN - UREA NITROGEN 6 mg/dL (7-25); CARBON DIOXIDE 18.5 mEq/L (21.0-31.0); CHLORIDE 109 mEq/L (98-107); CREATININE - SERUM 0.5 mg/dL (0.6-1.2); GFR AFRICAN-AMERICAN > 60.0 ml/min (>90); GFR NON AFRICAN-AMERICAN > 60.0 ml/min; GLUCOSE 100 mg/dL (70-105); SGOT 48 U/L (13-39); SGPT/ALT 32 U/L (7-52); SODIUM SERUM 137 mEq/L (136-145); TOTAL PROTEIN,SERUM 5.8 gm/dL (6.0-8.3)
--- NOTE | 2019-01-19 14:55 | Discharge Summary ---
General Discharge Summary - Discharge Summary Date of Admission: 01/16/19 Admitting Diagnosis: Nausea and vomit, Ileous, Leukocytosis, dehydration, Hyponatremia, MR, CP Patient Problems: All Active Problems N/V WITH LOOSE STOOLS (Acute) Discharge Date: 01/19/19 Discharge Diagnosis: Nausea and vomit resolved, Ileous resolved, Leukocytosis resolved, Dehydration resolved, Hyponatremia resolved, MR, CP Laboratory Findings: Laboratory Results - last 24 hr 01/19/19 14:14 WBC 4.6 L RBC 3.90 Hgb 11.6 L Hct 36.0 L MCV 92.5 MCH 29.8 MCHC Differential 32.3 RDW 13.6 Plt Count 251 MPV 8.6 Neutrophils % 55.7 Lymphocytes % 25.9 Monocytes % 14.0 H Eosinophils % 4.1 Basophils % 0.3 Hospital Course: Patient responded to treatment, she improved, and was DC Treatment: IV NS, IV AB, Miralax, and continue with SNF meds, She was follow by GI. Condition at Discharge: Stable Disposition: Discharge/Transfered to SNF Home Medications: Home Medication Medication Instructions Recorded Type Bisacodyl [Dulcolax 10 Mg Supp] 10 mg RC Q96HR PRN 10/09/14 History Calcium Citrate/Vitamin D3 1 tab PO BID 10/09/14 History [Calcium Citrate with Vitamin D 315 mg-200 Iu] Loratadine 10 mg PO QAM 10/09/14 History Magnesium Hydroxide [Mom] 30 ml PO Q72HR PRN 10/09/14 History Multimineral/Multivitamin 1 tab PO DAILY 10/09/14 History [Multivitamin & Multimineral] Na Phos, Dibasic/Na Phos, Mo 0 ml RC Q96H PRN 10/09/14 History [Fleet Enema] Vits A & D/White Pet/Lanolin [A & 1 oin TP BID 10/09/14 History D Ointment] Acetaminophen [Tylenol] 650 mg PO Q4HR PRN 10/05/15 History Oxcarbazepine [Trileptal*] 600 mg PO BID 10/05/15 History Dermasmooth Oil 1 appl TP HS 01/15/19 History Hydrocortisone/Oatmeal/Aloe/E 28 gm TP DAILY 01/15/19 History [Aveeno 1% Cream] Petrolatum,White [Aquaphor Baby 1 appl TP DAILY 01/15/19 History Healing Ointment] Sunscreen Factor 30 1 appl TP PRN PRN 01/15/19 History Inpatient Medications: Current Medications Acetaminophen (Tylenol) 650 mg PO Q4HR PRN PRN Reason: PAIN OR FEVER >100 Stop: 03/17/19 09:50 Calcium/Vitamin D (Oscal W/Vitamin D) 1 tab PO BID [facility] Stop: 03/17/19 16:59 Last Admin: 01/19/19 09:37 Dose: 1 tab Hydromorphone HCl (Dilaudid) 0.5 mg IVP Q6HR PRN PRN Reason: mod to severe pain Stop: 03/16/19 22:57 Sodium Chloride (Nacl 0.9%) 1,000 mls @ 100 mls/hr IV .Q10H [facility] Stop: 03/16/19 21:59 Last Admin: 01/16/19 14:28 Dose: 100 mls/hr Ceftriaxone Sodium 1 gm/ (Sodium Chloride) 50 mls @ 100 mls/hr IV Q24HR [facility] Stop: 03/17/19 08:59 Last Admin: 01/19/19 09:35 Dose: 100 mls/hr Metronidazole (Flagyl) 500 mg in 100 mls @ 100 mls/hr IV Q8HR [facility] Stop: 03/17/19 04:59 Last Admin: 01/19/19 12:22 Dose: 100 mls/hr Lorazepam (Ativan) 1 mg IVP Q8HR PRN; Protocol PRN Reason: Agitation Stop: 03/17/19 00:56 Last Admin: 01/18/19 22:12 Dose: 1 mg Multivitamins/Vitamin C (Theragran) 1 tab PO DAILY [facility] Stop: 03/18/19 08:59 Last Admin: 01/19/19 09:36 Dose: 1 tab Ondansetron HCl (Zofran) 4 mg IV Q8H PRN PRN Reason: Nausea / Vomiting Stop: 03/16/19 22:07 Oxcarbazepine (Trileptal) 600 mg PO BID [facility] Stop: 03/17/19 16:59 Last Admin: 01/19/19 09:36 Dose: 600 mg Consults and Follow-Up: Roque Gamez [Primary Care Provider] -
[2019-01-19 15:05] LABS: POTASSIUM SERUM 2.8 mEq/L (3.5-5.1)
[2019-01-19] MEDS ORDERED: Potassium Phosphate 40 MMOLE in Sodium Chloride 0.9% 250 ML IV ONE (15:05)
--- NOTE | 2019-01-19 20:58 | Progress Notes ---
DATE: 01/19/2019 SURGICAL PROGRESS NOTE TIME: 12:41 p.m. OBJECTIVE: VITAL SIGNS: The patient is afebrile. Vital signs stable. GENERAL: Resting in bed comfortably, in no acute distress. HEENT AND NECK: Within normal limits. CHEST: Clear to auscultation bilaterally. CARDIAC: Regular rhythm and rate. ABDOMEN: Soft, nontender, nondistended. There is no guarding, rebound, or generalized peritoneal signs. She is tolerating p.o. diet well, had several bowel movements yesterday and today. IMPRESSION/PLAN: No active surgical issues at this time, tolerating p.o. diet. Several bowel movements since admission, has a benign, soft and nontender exam. Surgical followup p.r.n. [facility]# [id number]
[2019-01-20] MEDS: Sodium Chloride 0.9% 1,000 ML IV SCH (04:50)
[2019-01-20] MEDS: metroNIDAZOLE 500mg/NS 100mL 500 MG/100 ML BAG IV SCH ×2 (04:57→12:08)
[2019-01-20] MEDS: Multivitamin Tab PO SCH (08:08)
[2019-01-20] MEDS: Calcium Carb/Vit D 500 mg/200 U Tab PO SCH (08:15)
[2019-01-20] MEDS: cefTRIAXone 1 GM in Sodium Chloride 0.9% 50 ML IV SCH (08:16)
[2019-01-20 10:37] LABS: ANION GAP 10.5 (7.0-16.0); BUN - UREA NITROGEN 7 mg/dL (7-25); CALCIUM SERUM 8.5 mg/dL (8.6-10.3); CARBON DIOXIDE 21.1 mEq/L (21.0-31.0); CHLORIDE 109 mEq/L (98-107); CREATININE - SERUM 0.5 mg/dL (0.6-1.2); GFR AFRICAN-AMERICAN > 60.0 ml/min (>90); GFR NON AFRICAN-AMERICAN > 60.0 ml/min; GLUCOSE 118 mg/dL (70-105); POTASSIUM SERUM 3.6 mEq/L (3.5-5.1); SODIUM SERUM 137 mEq/L (136-145)
--- NOTE | 2019-01-20 11:56 | General Progress Note ---
Subjective - Review of Systems Service Date: 01/20/19 Subjective: Patient Non Verbal Objective - Results Result Diagrams: 01/19/19 14:14 01/20/19 10:10 Recent Labs: Laboratory Last Values WBC 4.6 Th/cmm (4.8-10.8) L 01/19/19 14:14 RBC 3.90 Mil/cmm (3.80-5.10) 01/19/19 14:14 Hgb 11.6 gm/dL (12-16) L 01/19/19 14:14 Hct 36.0 % (41.0-60) L 01/19/19 14:14 MCV 92.5 fl (81-100) 01/19/19 14:14 MCH 29.8 pg (27.0-31.0) 01/19/19 14:14 MCHC Differential 32.3 pg (28.0-36.0) 01/19/19 14:14 RDW 13.6 % (11.5-20.0) 01/19/19 14:14 Plt Count 251 Th/cmm (150-400) 01/19/19 14:14 MPV 8.6 fl 01/19/19 14:14 Add Manual Diff YES 01/18/19 05:30 Neutrophils % 55.7 % (40.0-80.0) 01/19/19 14:14 Band Neutrophils % 5 % (0-10) 01/16/19 04:50 Lymphocytes % 25.9 % (20.0-50.0) 01/19/19 14:14 Monocytes % 14.0 % (2.0-10.0) H 01/19/19 14:14 Eosinophils % 4.1 % (0.0-5.0) 01/19/19 14:14 Basophils % 0.3 % (0.0-2.0) 01/19/19 14:14 Neutrophils (Manual) 61 % (40-80) 01/18/19 05:30 Lymphocytes 19 % (20-50) L 01/18/19 05:30 Monocytes 19 % (2-10) H 01/18/19 05:30 Eosinophils 1 % (0-5) 01/18/19 05:30 Basophils 0 % (0-3) 01/16/19 04:50 Platelet Estimate ADEQUATE (NORMAL) 01/18/19 05:30 Sodium 137 mEq/L (136-145) 01/20/19 10:10 Potassium 3.6 mEq/L (3.5-5.1) 01/20/19 10:10 Chloride 109 mEq/L (98-107) H 01/20/19 10:10 Carbon Dioxide 21.1 mEq/L (21.0-31.0) 01/20/19 10:10 Anion Gap 10.5 (7.0-16.0) 01/20/19 10:10 BUN 7 mg/dL (7-25) 01/20/19 10:10 Creatinine 0.5 mg/dL (0.6-1.2) L 01/20/19 10:10 Est GFR ( Amer) > 60.0 ml/min (>90) 01/20/19 10:10 Est GFR (Non-Af Amer) > 60.0 ml/min 01/20/19 10:10 BUN/Creatinine Ratio 14.0 01/20/19 10:10 Glucose 118 mg/dL (70-105) H 01/20/19 10:10 Calcium 8.5 mg/dL (8.6-10.3) L 01/20/19 10:10 Total Bilirubin 0.2 mg/dL (0.3-1.0) L 01/19/19 14:14 AST 48 U/L (13-39) H 01/19/19 14:14 ALT 32 U/L (7-52) 01/19/19 14:14 Alkaline Phosphatase 52 U/L (34-104) 01/19/19 14:14 Troponin I < 0.01 ng/mL (0.01-0.05) L 01/15/19 14:30 Total Protein 5.8 gm/dL (6.0-8.3) L 01/19/19 14:14 Albumin 3.3 gm/dL (3.7-5.3) L 01/19/19 14:14 Globulin 2.5 gm/dL 01/19/19 14:14 Albumin/Globulin Ratio 1.3 (1.0-1.8) 01/19/19 14:14 Amylase 50 U/L (29-103) 01/15/19 14:30 Lipase 21 U/L (11-82) 01/15/19 14:30 Serum , Qual NEGATIVE (NEGATIVE) 01/15/19 14:30 - Physical Exam Vitals and I&O: Vital Signs Temp 97.3 F 01/20/19 04:00 Pulse 82 01/20/19 04:00 Resp 17 01/20/19 04:00 BP 117/53 01/20/19 04:00 Pulse Ox 96 01/20/19 04:00 Intake & Output 01/19/19 01/20/19 01/20/19 18:59 06:59 18:59 Intake Total 525 320 Balance 525 320 Weight (lbs) 51.71 kg 51.71 kg Intake: Intake, IV Amount 150 200 cefTRIAXone 1 gm In 50 Sodium Chloride 0.9% 50 ml @ 100 mls/hr IV Q24HR [facility] Rx#:[id number] metroNIDAZOLE 500mg/NS 100 200 100mL 500 mg In 100 ml @ 100 mls/hr IV Q8HR [facility] Rx #:[id number] Oral 375 120 Other: # Voids 3 2 # Bowel Movements 1 Weight Source Bedscale Bedscale Active Medications: Current Medications Acetaminophen (Tylenol) 650 mg PO Q4HR PRN PRN Reason: PAIN OR FEVER >100 Stop: 03/17/19 09:50 Calcium/Vitamin D (Oscal W/Vitamin D) 1 tab PO BID [facility] Stop: 03/17/19 16:59 Last Admin: 01/20/19 08:15 Dose: 1 tab Hydromorphone HCl (Dilaudid) 0.5 mg IVP Q6HR PRN PRN Reason: mod to severe pain Stop: 03/16/19 22:57 Sodium Chloride (Nacl 0.9%) 1,000 mls @ 100 mls/hr IV .Q10H [facility] Stop: 03/16/19 21:59 Last Admin: 01/20/19 04:50 Dose: 100 mls/hr Ceftriaxone Sodium 1 gm/ (Sodium Chloride) 50 mls @ 100 mls/hr IV Q24HR [facility] Stop: 03/17/19 08:59 Last Admin: 01/20/19 08:16 Dose: 100 mls/hr Metronidazole (Flagyl) 500 mg in 100 mls @ 100 mls/hr IV Q8HR [facility] Stop: 03/17/19 04:59 Last Infusion: 01/20/19 05:57 Dose: Infused Lorazepam (Ativan) 1 mg IVP Q8HR PRN; Protocol PRN Reason: Agitation Stop: 03/17/19 00:56 Last Admin: 01/18/19 22:12 Dose: 1 mg Multivitamins/Vitamin C (Theragran) 1 tab PO DAILY [facility] Stop: 03/18/19 08:59 Last Admin: 01/20/19 08:08 Dose: 1 tab Ondansetron HCl (Zofran) 4 mg IV Q8H PRN PRN Reason: Nausea / Vomiting Stop: 03/16/19 22:07 Oxcarbazepine (Trileptal) 600 mg PO BID [facility] Stop: 03/17/19 16:59 Last Admin: 01/20/19 08:08 Dose: 600 mg General: Alert, Other (Confused, non verbal) HEENT: Atraumatic Neck: Supple Cardiovascular: Regular rate Lungs: Clear to auscultation Abdomen: Bowel sounds, Soft, Other (Non tender) Extremities: Other (No edema) Neurological: Other (Non ambulatory) Skin: Other (Warm and dry) Psych/Mental Status: Other (Confused, not oriented, non verbal) Assessment/Plan - Problem List Patient Problems: All Active Problems N/V WITH LOOSE STOOLS (Acute) - Assessment Assessment: Current Active Problems Problem Status Onset N/V WITH LOOSE STOOLS Acute Patient is awake, alert, Calm, in no acute distress. Patient was not DC yesterday due to Low K. Dx: Diarrhea and vomit, possible ileus, Leukocytosis, Dehydrated, Hyponatremia, MR, CP. - Plan Plan: Patient is in IV NS, IV AB, NPO, continue with SNF meds. K was replaced. Patient will be DC today. Nutritional Asmnt/Malnutr-PDOC - Dietary Evaluation Malnutrition Findings (Please click <Entered> for more info): Nutritional Asmnt/Malnutrition Start: 01/16/19 16: 31 Text: Status: Complete Freq: Protocol: Document 01/16/19 16:31 LCHENG (Rec: 01/16/19 16:38 LCH[facility] [email or web address]) Nutritional Asmnt/Malnutrition Patient General Information Nutritional Screening High Risk Consult Diagnosis possible ileus Pertinent Medical Hx/Surgical Hx HTN, dyslipidemia, arthritis, dementia Subjective Information Consult received for judith 11 . Pt admitted for N/V/D, abd pain. Pt seen lying in bed, confused, not participated in communication, has 1:1 sitter. pt was on NPO. Clear liquid starts from dinner today. Current Diet Order/ Nutrition Support clear liquid Pertinent Medications oscal w/vit D, theragran, nacl 0.9% Pertinent Labs 01/16 K 3.0, Cl 109, Glucose 110 01/15 Na 132, K 3.4, Glucose 114 Nutritional Hx/Data Height 1.42 m Height (Calculated Centimeters) 142.2 Current Weight (lbs) 51.71 kg Weight (Calculated Kilograms) 51.7 Weight (Calculated Grams) 94470.5 [place] Body Weight 92 Body Mass Index (BMI) 25.5 Recent Weight Change Yes Weight Status Overweight GI Symptoms GI Symptoms None Last BM not indciated Difficult in: None Skin Integrity/Comment: intact. judith Maciel Estimated Nutritional Goals BEE in Kcals: Using Current wt Calories/Kcals/Kg 23-27 Kcals Calculated 7006-4239 Protein: Using Current wt Protein g/k.8 Protein Calculated 41 Fluid: ml 1196-1404ml (1ml/kcal) Nutritional Problem 1. Problem Problem inadequate food intake Etiology GI dysfunction Signs/Symptoms: pt on clear liquid diet Malnutrition Alert Is there a minimum of two criteria No selected? Query Text:Check all the applicable criteria. A minimum of two criteria are recommended for diagnosis of either severe or non-severe malnutrition. Malnutrition Related to Morbid Obesity Malnutrition related to morbid obesity No Intervention/Recommendation Comments 1. Continue with clear liquid diet as ordered. Add ENsure Clear TId with meals for extra kcal and protein per hospital protocol. 2. Monitor PO intake and tolerance, GI symptoms, wt, labs and skin integrity 3. F/U as high risk in 2-3 days Expected Outcomes/Goals Expected Outcomes/Goals 1. PO intake to meet at least 75% of nutritional needs. 2. Wt stability, skin to remain intact, labs to approach WNL.
== END 2019-01-20 15:12 | DRG 247 ==
LOC: ER 14:09 → MSI 21:06
PROVIDERS: ADMIT General Practice; ATTEND General Practice
DX: K56.7 Ileus, unspecified (principal); E87.1 Hypo-osmolality and hyponatremia; A09 Infectious gastroenteritis and colitis, unspecified; E86.0 Dehydration; E87.6 Hypokalemia; D72.829 Elevated white blood cell count, unspecified; G80.9 Cerebral palsy, unspecified; F79 Unspecified intellectual disabilities; I10 Essential (primary) hypertension; E78.5 Hyperlipidemia, unspecified; M19.90 Unspecified osteoarthritis, unspecified site; Z79.899 Other long term (current) drug therapy
CPT/HCPCS: 36415-UA; 74000-TC; 80048-TC; 80053-TC; 82150-TC; 83690-TC; 84484-TC; 84703-TC; 85007-TC; 85025-TC; 90799; 96375; J0696; J2060; J2405; J3480; J7030; J7040; Z7610